=== PATIENT | female | born 1945 | race Caucasian/White ===

== ENCOUNTER → 2021-04-20 | Outpatient (CLI) | payer OTHER, MEDICARE ==
[~2021-04-20] MED LIST: BYSTOLIC 5 MG5 M1 PO; FLEXERIL PO; NOHOMEMEDICATIONS; VENTOLIN17 GM INH; VICODIN 5-5001 EACH PO
== END ==
LOC: SJCVC 14:06
PROVIDERS: ATTEND Internal Medicine Cardiovascular Disease
DX: I10 Essential (primary) hypertension (principal); E78.5 Hyperlipidemia, unspecified; D68.59 Other primary thrombophilia; J43.9 Emphysema, unspecified; E03.9 Hypothyroidism, unspecified; Z86.711 Personal history of pulmonary embolism; Z86.16 Personal history of COVID-19; Z79.899 Other long term (current) drug therapy; Z88.1 Allergy status to other antibiotic agents; Z88.5 Allergy status to narcotic agent; Z88.2 Allergy status to sulfonamides; Z88.8 Allergy status to other drugs, medicaments and biological substances